=== PATIENT | female | born 1965 | race Hispanic/Latino ===

== ENCOUNTER → 2023-10-01 | Emergency (ER) | payer SELFPAY ==
[2023-10-01 21:19] LABS: Hematocrit 39.4 % (36.0-45.0); MCV 91.8 fL (80-100); Platelets 338 thou/uL (152-406); RBC Red Blood Cell Count 4.29 M/uL (3.86-4.86)
[2023-10-01 21:26] LABS: Potassium 3.4 mEq/L (3.5-5.1)
[2023-10-01 21:31] LABS: Urine Bacteria None Seen /HPF (<20); Urine Bilirubin NEGATIVE (Negative); Urine Blood Negative (Negative); Urine Clarity Clear (Clear); Urine Color Yellow (Yellow); Urine Crystals Unidentified Few /HPF (None Seen); Urine Glucose NEGATIVE (Negative); Urine Mucus 1+ /HPF (None Seen); Urine Protein TRACE (Negative); Urine Urobilinogen Normal (Normal)
--- NOTE | 2023-10-01 21:34 | ER ---
Nurse's Notes [facility] Name: Payal Francois Age: 57 yrs Sex: Female : 1965 Arrival Date: 10/01/2023 Time: 19:56 Bed 19 Private MD: Diagnosis: Other peripheral vertigo, left ear Presentation: 10/01 20:17 Chief complaint: Patient states: Dizziness onset at 1300 today. Pt states that when she cm10 moves her head the dizziness gets worse. Pt reports having one episode of vomiting. Pt Denies any chest pain or shortness of breath. Coronavirus screen: Vaccine status: Patient reports being unvaccinated. Client denies travel out of the [place] in the last 14 days. Ebola Screen: Patient denies travel to an Ebola-affected area in the 21 days before illness onset. No symptoms or risks identified at this time. Initial Sepsis Screen: Does the patient meet any 2 criteria? No. Patient's initial sepsis screen is negative. Does the patient have a suspected source of infection? No. Patient's initial sepsis screen is negative. Risk Assessment: Do you want to hurt yourself or someone else? Patient reports no desire to harm self or others. Onset of symptoms was October 01, 2023. 20:17 Method Of Arrival: Ambulatory cm10 20:17 Acuity: ALEXANDER 3 cm10 Triage Assessment: 20:18 General: Appears in no apparent distress. comfortable, Behavior is calm, cooperative. cm10 Pain: Denies pain. Neuro: No deficits noted. [place] Agitation-Sedation Scale (RASS): 0 - Alert and Calm Level of Consciousness is awake, alert, obeys commands, Oriented to person, place, time, situation, Gait is steady, Speech is normal, Facial symmetry appears normal, Reports dizziness, since 1300 Denies blurred vision headache. Cardiovascular: No deficits noted. Denies chest pain, shortness of breath, Capillary refill < 3 seconds Patient's skin is warm and dry. Respiratory: No deficits noted. Airway is patent Respiratory effort is even, unlabored, Respiratory pattern is regular, symmetrical. GI: Reports indigestion, vomiting. : No deficits noted. No signs and/or symptoms were reported regarding the genitourinary system. Derm: No deficits noted. No signs and/or symptoms reported regarding the dermatologic system. Skin is intact, Skin is pink, warm \T\ dry. Musculoskeletal: No deficits noted. No signs and/or symptoms reported regarding the musculoskeletal system. Range of motion: intact in all extremities. Historical: - Allergies: 20:18 No Known Allergies; cm10 - Home Meds: 20:18 None [Active]; cm10 - PMHx: 20:18 None; cm10 - PSHx: 20:18 None; cm10 - Immunization history:: Adult Immunizations up to date. - Social history:: Smoking status: Patient denies any tobacco usage or history of. Screenin:43 [facility] ED Fall Risk Assessment (Adult) Score/Fall Risk Level 0 - 2 = Low Risk nj1 Oriented to surroundings, Maintained a safe environment, Hourly rounding (assess needs \T\ fall precautionary measures) done. Abuse screen: Denies threats or abuse. Denies injuries from another. Nutritional screening: No deficits noted. Tuberculosis screening: No symptoms or risk factors identified. Assessment: 20:30 Reassessment: See triage assessment. nj1 21:05 General: Appears in no apparent distress. Behavior is calm, cooperative, appropriate ap3 for age. Pain: Denies pain. Neuro: Reports dizziness, since this afternoon. Cardiovascular: Patient's skin is warm and dry. Respiratory: Airway is patent Respiratory effort is even, unlabored, Respiratory pattern is regular, symmetrical. GI: Reports nausea. Vital Signs: 20:17 BP 172 / 100; Pulse 76; Resp 16; Temp 97.1; Pulse Ox 100% on R/A; Weight 86.18 kg; cm10 Height 5 ft. 5 in. ; Pain 0/10; 21:45 BP 156 / 93; ap3 20:17 Body Mass Index 31.62 (86.18 kg, 165.1 cm) cm10 20:17 Pain Scale: Adult cm10 ED Course: 20:02 Patient arrived in ED. gm2 20:09 Jennyfer Lutz MD is Attending Physician. gb1 20:18 Triage completed. cm10 20:18 Arm band placed on Patient placed in an exam room, on a stretcher. cm10 20:26 Suzie Osullivan, DELVIN is Primary Nurse. nj1 20:43 Patient has correct armband on for positive identification. Bed in low position. Call nj1 light in reach. Provided Education on: call light, fall precautions. 21:05 Initial lab(s) drawn, by sc, sent to lab. Inserted saline lock: 22 gauge in right ap3 antecubital area, using aseptic technique. Blood collected. 21:06 BMP Sent. ap3 21:06 CBC w/o diff Sent. ap3 21:45 No provider procedures requiring assistance completed. IV discontinued, intact, ap3 bleeding controlled, No redness/swelling at site. Pressure dressing applied. Administered Medications: No medications were administered Medication: 20:44 VIS not applicable for this client. nj1 Outcome: 21:33 Discharge ordered by . ragini 21:45 Discharged to home ambulatory, ap3 21:45 Condition: good 21:45 Discharge instructions given to patient, Instructed on discharge instructions, follow up and referral plans. medication usage, Demonstrated understanding of instructions, follow-up care, medications, Prescriptions given X 1, 21:48 Patient left the ED. ap3 Signatures: Nina Love RN RN ap3 Suzie Osullivan RN RN nj1 Annelise Stubbs RN RN cm10 Jennyfer Lutz MD MD gb1 Nikki Brown [facility]
--- NOTE | 2023-10-01 21:34 | EDPHYS ---
Physician Documentation [facility] Name: Payal Francois Age: 57 yrs Sex: Female : 1965 Arrival Date: 10/01/2023 Time: 19:56 Bed 19 Private MD: ED Physician Jennyfer Lutz HPI: 10/01 21:35 This 57 yrs old Female presents to ER via Ambulatory with complaints of gb1 Dizziness, Nausea/Vomiting. Historical: - Allergies: 20:18 No Known Allergies; cm10 - Home Meds: 20:18 None [Active]; cm10 - PMHx: 20:18 None; cm10 - PSHx: 20:18 None; cm10 - Immunization history:: Adult Immunizations up to date. - Social history:: Smoking status: Patient denies any tobacco usage or history of. ROS: 21:35 Constitutional: Positive for Dizziness nausea vomiting prior to arrival., gb1 21:35 All other systems are negative, Exam: 21:35 Constitutional: This is a well developed, well nourished patient who is awake, alert, gb1 and in no acute distress. Head/Face: Normocephalic, atraumatic. Eyes: Pupils equal round and reactive to light, extra-ocular motions intact. Lids and lashes normal. Conjunctiva and sclera are non-icteric and not injected. Cornea within normal limits. Periorbital areas with no swelling, redness, or edema. ENT: Nares patent. No nasal discharge, no septal abnormalities noted. Tympanic membranes are normal and external auditory canals are clear. Oropharynx with no redness, swelling, or masses, exudates, or evidence of obstruction, uvula midline. Mucous membranes moist. Neck: Trachea midline, no thyromegaly or masses palpated, and no cervical lymphadenopathy. Supple, full range of motion without nuchal rigidity, or vertebral point tenderness. No Meningismus. Chest/axilla: Normal chest wall appearance and motion. Nontender with no deformity. No lesions are appreciated. Cardiovascular: Regular rate and rhythm with a normal S1 and S2. No gallops, murmurs, or rubs. Normal PMI, no JVD. No pulse deficits. Respiratory: Lungs have equal breath sounds bilaterally, clear to auscultation and percussion. No rales, rhonchi or wheezes noted. No increased work of breathing, no retractions or nasal flaring. Abdomen/GI: Soft, non-tender, with normal bowel sounds. No distension or tympany. No guarding or rebound. No evidence of tenderness throughout. Back: No spinal tenderness. No costovertebral tenderness. Full range of motion. Skin: Warm, dry with normal turgor. Normal color with no rashes, no lesions, and no evidence of cellulitis. MS/ Extremity: Pulses equal, no cyanosis. Neurovascular intact. Full, normal range of motion. Neuro: Awake and alert, GCS 15, oriented to person, place, time, and situation. Cranial nerves II-XII grossly intact. Motor strength 5/5 in all extremities. Sensory grossly intact. Cerebellar exam normal. Normal gait. Psych: Awake, alert, with orientation to person, place and time. Behavior, mood, and affect are within normal limits. Vital Signs: 20:17 BP 172 / 100; Pulse 76; Resp 16; Temp 97.1; Pulse Ox 100% on R/A; Weight 86.18 kg; cm10 Height 5 ft. 5 in. ; Pain 0/10; 21:45 BP 156 / 93; ap3 20:17 Body Mass Index 31.62 (86.18 kg, 165.1 cm) cm10 20:17 Pain Scale: Adult cm10 MDM: 20:20 Patient medically screened. gb1 21:35 Differential diagnosis: cardiac arrhythmia, CVA, idiopathic dizziness, near-syncope, gb1 TIA, vertigo. ED course: 57-year-old female with no past medical history but she has not been to her physician ever comes with peripheral vertigo symptoms. No central findings on exam or by report on history and physical. The patient does have an elevated blood pressure reading and I have encouraged her to follow-up with a primary care doctor to address that. Her other vital signs are normal as well as her labs are normal. I do not believe at this time that she requires a CT head of to evaluate any further. I prescribed meclizine to see if this can help her symptoms but I have also given her explicit return precautions which is compliant. I doubt TIA or CVA as her neurological exam is within normal limits today no focal findings.. 21:37 Data reviewed: vital signs, nurses notes, lab test result(s), CBC, electrolytes, gb1 sodium, potassium, chloride, serum bicarbonate, BUN, creatinine, serum glucose. 10/01 20:45 Order name: CBC w/o diff; Complete Time: 21:32 gb1 10/01 20:45 Order name: BMP; Complete Time: 21:32 gb1 10/01 20:45 Order name: Urine W/Microscopic (UAM); Complete Time: 21:32 gb1 Administered Medications: No medications were administered Disposition: 21:37 Chart complete. Chart complete. gb1 Disposition Summary: 10/01/23 21:33 Discharge Ordered Notes: Location: Home gb1 Problem: new gb1 Symptoms: have improved gb1 Condition: Stable gb1 Diagnosis - Other peripheral vertigo, left ear gb1 Followup: gb1 - With: Private Physician - When: Upon discharge from the Emergency Department - Reason: Re-evaluation by your physician Discharge Instructions: - Discharge Summary Sheet gb1 - Benign Positional Vertigo gb1 - Preventing Hypertension gb1 Forms: - Medication Reconciliation Form gb1 - Thank You Letter gb1 - Antibiotic Education gb1 - Prescription Opioid Use gb1 - Patient Portal Instructions gb1 - Leadership Thank You Letter gb1 Prescriptions: - Meclizine 25 mg Oral Tablet - take 1 tablet ORAL route every 8 hours As needed; 30 tablet; Refills: 0, gb1 Product Selection Permitted Signatures: Dispatcher [employer] Annelise Dickinson RN RN cm10 Jennyfer Lutz MD MD gb1
[2023-10-02 03:10] VITALS: BP 156/93; TEMP 97.1; O2SAT 100
== END ==
LOC: ER 19:56
DX: H81.392 Other peripheral vertigo, left ear (principal)
CPT/HCPCS: 36415; 80048; 81001; 85027